=== PATIENT | female | born 1955 | race Caucasian/White ===

== ENCOUNTER 2016-06-25 02:14 | Emergency (ER) | payer SELFPAY ==
[~2016-06-25] VITALS: Ht 157.4 cm; Wt 40.8 kg
[~2016-06-25 02:14] MED LIST: BACITRACIN 500U30 GM OPH; BENTYL10 MG PO; CIPRO250 MG PO; CYCLOBENZAPRINE10 MG PO; DIFLUCAN150 MG PO; HYDROCODONE BIT1 T11 PO; LEXAPRO5 M1 PO; LOMOTIL 0.025 M1 TA1 PO; MACROBID100 M1 PO; MEDROL DOSEPAK4 MG PO; MOBIC7.5 MG PO; PERCOCET 325 MG1 TA7 PO; PHENERGAN25 M1 PO; PRILOSEC20 MG PO; PYRIDIUM200 MG PO; RANITIDINE150 MG PO; SYNTHROID,LEVO75 MCG PO; TRAMADOL HCL50 MG PO; ULTRAM50 MG PO; VICODIN 5/500 505 MG PO; XANAX0.25 MG PO; XANAX0.5 MG PO; ZOLOFT50 MG PO
[2016-06-25] MEDS ORDERED: NORCO 5-325 TA1 EACH PO (03:35)
[2016-06-25] MEDS ORDERED: Orphenadrine C100 MG PO (03:35)
[2016-06-25] MEDS ORDERED: PREDNISONE10 MG PO (03:35)
== END 2016-06-25 04:51 | disposition home or self-care (01) ==
LOC: ED 02:14
DX: M54.40 Lumbago with sciatica, unspecified side (principal); Z88.1 Allergy status to other antibiotic agents; Z79.899 Other long term (current) drug therapy

== ENCOUNTER → 2017-01-16 | Outpatient (CLI) | payer SELFPAY ==
[~2017-01-16] MED LIST changes: +NORCO 5-325 TA1 EACH PO; +Orphenadrine C100 MG PO; +PREDNISONE10 MG PO
[2017-01-16 09:31] LABS: FREE T4 1.19 ng/dl (0.76-1.46); THYROID STIM HORMONE (HS) 0.042 uIU/ml (0.358-4.75)
== END | disposition home or self-care (01) ==
LOC: LAB 08:28
PROVIDERS: Family Medicine
DX: E03.9 Hypothyroidism, unspecified (principal)

== ENCOUNTER 2018-07-01 20:20 | Emergency (ER) | payer BC, MEDICARE ==
[~2018-07-01] VITALS: Ht 157.4 cm; Wt 38.1 kg
--- NOTE | ~2018-07-01 | EKG ---
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
--- NOTE | ~2018-07-01 | EKG ---
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
[2018-07-01 21:06] LABS: HEMATOCRIT 23.9 % (37.0-47.0); HEMOGLOBIN 8.1 g/dl (12.0-16.0); MEAN CELL VOLUME 89.8 fl (81.0-99.0); MEAN CORPUSCULAR HGB 30.5 pg (27.0-31.0); MEAN CORPUSCULAR HGB CONC 33.9 g/dl (33.0-37.0); RED BLOOD COUNT 2.66 10*6/uL (4.10-5.10); RED CELL DISTRI WIDTH 21.3 % (0-14.5)
[2018-07-01 21:15] LABS: ACT PARTIAL THROMBO TIME 30.1 SECONDS (20.8-31.5); INTERNATIONAL NORM RATIO 1.4 (2.0-3.5)
[2018-07-01 21:25] LABS: ALBUMIN 1.8 gm/dl (3.1-4.5); ALKALINE PHOSPHATASE 394 U/L (45-117); BUN 43 mg/dl (7-24); CHLORIDE 96 mmol/L (98-107); CREATININE 1.09 mg/dL (0.55-1.02); LIPASE 71 U/L (73-393); POTASSIUM 3.1 mmol/L (3.5-5.1); SGOT/AST 215 IU/L (3-35); SGPT/ALT 38 U/L (12-78); SODIUM 130 mmol/L (136-145); TOTAL PROTEIN 6.3 gm/dL (6.4-8.2)
[2018-07-01 21:30] LABS: TROPONIN I < 0.015 ng/ml (<0.045)
[2018-07-01 21:39] LABS: PLATELET COUNT AUTOMATED 17 10*3/uL (130-400); WHITE BLOOD COUNT 0.1 10*3/uL (4.8-10.8)
[2018-07-01 22:17] LABS: TARGET CELLS FEW; TOTAL CELLS COUNTED 100 #CELLS
[2018-07-01 22:18] LABS: PLATELET SUFFICIENCY LOW (NORMAL)
[2018-07-02] MEDS ORDERED: DIFLUCAN150 MG PO (00:03)
== END 2018-07-02 04:58 | disposition short-term general hospital (02) ==
LOC: ED 20:20
PROVIDERS: Nurse Practitioner Family
DX: J18.1 Lobar pneumonia, unspecified organism (principal); J96.90 Respiratory failure, unspecified, unspecified whether with hypoxia or hypercapnia; D70.9 Neutropenia, unspecified; D69.6 Thrombocytopenia, unspecified